=== PATIENT | male | born 2000 | race Caucasian/White ===

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

== ENCOUNTER 2021-07-03 20:55 | Emergency (ER) | payer OTHER ==
[~2021-07-03] VITALS: Ht 177.8 cm; Wt 48.0 kg
--- NOTE | 2021-07-03 21:00 | NUR ---
NIL X 1
[2021-07-03] MEDS ORDERED: SODIUM CHLORIDE 0.9% 1,000ML IVBOLUS ONE (21:30)
[2021-07-03] MEDS ORDERED: PLEASE ENTER HEIGHT AND WEIGHT MC SCH (21:30)
[2021-07-03 23:14] LABS: PH, VENOUS 7.325 pH (7.320-7.420)
--- NOTE | 2021-07-03 23:14 | NUR ---
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
[2021-07-03 23:23] LABS: BASOPHILS % (AUTO) 0 % (0-1); EOSINOPHILS % (AUTO) 0 % (1-7); LYMPHOCYTES % (AUTO) 17 % (22-44); MEAN CORPUSCULAR HEMOGLOBIN 31.4 pg (27.5-34.5); MEAN CORPUSCULAR HGB CONC 34.8 g/dL (33.2-36.2); MEAN PLATELET VOLUME 9.9 fL (7.4-10.4); MONOCYTES % (AUTO) 6 % (2-9); NEUTROPHILS % (AUTO) 78 % (42-75); PLATELET COUNT 275 x10^3/uL (130-400); RED CELL DISTRIBUTION WIDTH 13.8 % (9.4-14.8)
[2021-07-03 23:27] LABS: ALANINE AMINOTRANSFERASE 52 U/L (12-78); ANION GAP 18 mmol/L (5-15); CHLORIDE 89 mmol/L (98-107); CREATININE 0.95 mg/dL (0.7-1.3)
[2021-07-03 23:29] LABS: ALKALINE PHOSPHATASE 117 U/L (45-117); BILIRUBIN,TOTAL 1.2 mg/dL (0.2-1.0); TOTAL PROTEIN 7.7 g/dL (6.4-8.2)
--- NOTE | 2021-07-03 23:30 | NUR ---
INITIAL PT CONTACT. PT PRESENTS TO ED STATING HE HAD "HIGH BLOOD SUGAR AT URGENT CARE. THEY SAID IT WAS IN 380'S." PT REPORTS FEELING UNWELL FOR APPROX 2 WEEKS WITH NAUSEA, HEADACHE, DIZZINESS AND 20-30LBS OF WEIGHT LOSS OVER 2 WEEKS. PT SITTING UPRIGHT ON JAYSONRELKIN LIN, VSS. PT PLACED ON CONTINUOUS MONITORING. CALL LIGHT AND PERSONAL BELONGINGS WITHIN REACH. ERP AT BEDSIDE. PT STATES TESTED FOR DIABETES AT URGENT CARE TODAY AND BLOOD SUGAR WAS IN THE 380'S. PT STATES BEING SICK FOR 2 WEEKS. BS 373 IN TRIAGE Addendum: 07/03/21 at 2339 by [place] INITIAL PT CONTACT. PT PRESENTS TO ED STATING HE HAD "HIGH BLOOD SUGAR AT URGENT CARE. THEY SAID IT WAS IN 380'S." PT REPORTS FEELING UNWELL FOR APPROX 2 WEEKS WITH NAUSEA, HEADACHE, DIZZINESS AND 20-30LBS OF WEIGHT LOSS OVER 2 WEEKS. PT SITTING UPRIGHT ON ELKIN COLLINS, VSS. PT PLACED ON CONTINUOUS MONITORING. CALL LIGHT AND PERSONAL BELONGINGS WITHIN REACH. ERP AT BEDSIDE.
[2021-07-04 00:10] LABS: ACETONE, SERUM Large (80mg/dL) (Negative)
[2021-07-04 00:18] LABS: MICROSCOPIC NOT IND
[2021-07-04] MEDS ORDERED: SODIUM CHLORIDE 0.9% 1,000ML IVBOLUS ONE (00:30)
[2021-07-04] MEDS ORDERED: metFORMIN 500 MG TABLET ONE (00:54)
[2021-07-04] MEDS ORDERED: metFORMIN 500 MG TABLET PO ONE (01:00)
[2021-07-04 01:26] VITALS: BP 107/67
--- NOTE | 2021-07-04 01:26 | NUR ---
Patient given discharge instructions and they have confirmed that they understand the instructions. Patient ambulatory with steady gait. NAD, all questions answered appropriately, denies additional needs at this time. No personal belongings left in room after discharge.
== END 2021-07-04 01:29 | disposition home or self-care (01) ==
LOC: ED 23:59
DX: E11.65 Type 2 diabetes mellitus with hyperglycemia (principal); R00.0 Tachycardia, unspecified; R42 Dizziness and giddiness
CPT/HCPCS: 36415; 80053; 81003; 82010; 82803; 83036; 83930; 85025; 96360; 96361; 99283; J7030; 82962